=== PATIENT | male | born 1975 | race Caucasian/White ===

== ENCOUNTER → 2017-08-02 | Outpatient (CLI) | payer BC ==
[~2017-08-02] MED LIST: ASPIRIN 81M81 MG/TA2 PO; CIPRO 500MG TA500 MG PO; ERYTHROMYCIN5 MG/G1 OP; LEVAQUIN 750MG750 M1 PO; NO HOME MEDICATIONS; NORCO 325 MG-51 TAB PO; PRINIVIL10 MG PO; ZOFRAN 4MG T4 MG/TAB PO; [UNRECOGNIZED DRUG - REMARK]
== END ==
LOC: COL.RAD 07:41
DX: M79.604 Pain in right leg (principal); M79.605 Pain in left leg; I70.8 Atherosclerosis of other arteries
CPT/HCPCS: Q9967

== ENCOUNTER 2020-02-08 02:52 | Observation (INO) | payer BC ==
[2020-02-08] VITALS (9 sets, daily range): BP systolic 109–135; BP diastolic 66–88; PULSE 75–104; TEMP 97–99
[~2020-02-08] VITALS: Ht 182.9 cm; Wt 98.9 kg
[~2020-02-08 02:52] MED LIST changes: +HYZAAR 25 MG-101 TAB PO
[2020-02-08 04:11] LABS: BASO % 0.2 % (0.0-2.0); EOS % 0.1 % (0-4.0); GRAN # 14.4 (1.4-6.5); GRAN % 88.4 % (42.2-75.2); HEMATOCRIT 44.2 % (42.0-52.0); HEMOGLOBIN 15.2 g/dl (13.5-18.0); LYMPH # 1.3 (1.2-3.4); LYMPH % 7.7 % (20.0-51.0); MEAN CELL VOLUME 89 fl (80.0-100.0); MEAN CORPUSCULAR HEMOGLOBIN 31 pg (27.0-31.0); MEAN CORPUSCULAR HGB CONC 34 g/dl (33.0-37.0); MEAN PLATELET VOLUME 9.4 fl (7.4-10.4); MONO # 0.5 (0.1-0.6); MONO % 3.2 % (1.7-9.3); PLATELET COUNT 332 K/mm3 (130-400); RED BLOOD COUNT 4.99 M/mm3 (4.20-5.60); REDCELL DISTRIBUTION WIDTH-CV 12.9 % (11.5-14.5)
[2020-02-08 04:22] LABS: BILIRUBIN,TOTAL 0.4 mg/dL (0.0-1.0); CALCIUM 9.1 mg/dL (8.4-10.2); CREATININE, serum 0.81 (0.66-1.25); POTASSIUM 3.9 mmol/L (3.4-5.0); TOTAL PROTEIN 7.6 gm/dL (6.4-8.2)
[2020-02-08] MEDS ORDERED: MULTIPLE VITAMI1 CAP PO (06:11)
[2020-02-08 06:19] LABS: COLLECTION METHOD CLEAN CATCH
[2020-02-08 06:51] LABS: MUCOUS Present /lpf; PH 5 (5-8); SQUAMOUS EPITHELIAL None Seen /hpf; URINE APPEARANCE Clear; URINE BACTERIA None Seen /hpf; URINE BILIRUBIN Negative (NEGATIVE); URINE BLOOD Negative (NEGATIVE); URINE COLOR Yellow; URINE GLUCOSE Negative (NEGATIVE); URINE KETONE Negative (NEGATIVE); URINE LEUKOCYTE ESTERASE Negative (NEGATIVE); URINE NITRATE Negative (NEGATIVE); URINE PROTEIN(semi-quant) Negative (NEGATIVE); URINE RBC 0-2 /hpf; URINE UROBILINOGEN Negative (NEGATIVE)
--- NOTE | 2020-02-08 11:56 | NUR ---
Plan is to return home with his [facility] in [place]. Patient reports that his will transport him home. Patient denies the use of HH services, and does not require any DME;s. PCP is Jayson Richardson and patient obtains RX from [facility] without issues. Patient denies any additonal concerns. Nothing Follows.
--- NOTE | 2020-02-08 13:00 | NUR ---
Patient is going down to OR for Cholecysectomy at this time
--- NOTE | 2020-02-08 16:45 | NUR ---
Patient continues to do well, taking PO fluid well, VS stable, reports pain is tolerable, denies other needs
--- NOTE | 2020-02-08 18:14 | NUR ---
continues to do well post-op , vital signs stable, weaned off O2 and sats are WNL >90%, pain controlled, small amount of oozing from one of his Lap sites, up voiding urine, tolerating PO intake without N/V/Pain
[2020-02-08] MEDS ORDERED: NORCO 325 MG-51 TAB PO (19:00)
--- NOTE | 2020-02-08 19:30 | NUR ---
DR. EVANS GAVE PT OPTION TO GO HOME. PT DECIDED HE DID WANT TO GO HOME. [facility]d [facility] INTACT.
--- NOTE | 2020-02-08 19:40 | NUR ---
DISCHARGE INSTRUCTIONS GIVEN WITH HARD COPY TO PT. PT DENIED PAIN AT TIME OF DISCHARGE. SCRIPT FOR NORCO GIVEN TO PT. PHARMACY WAS CLOSED SO PT GIVEN 4 TAB TAKE-HOME PACK OF NORCO. PT DRESSED AND ESCORTED TO [facility] WHERE HIS PICKED HIM UP. PT HAD ALL HIS BELONGINGS WITH HIM.
== END 2020-02-08 19:40 | disposition home or self-care (01) ==
LOC: COL.ER 02:52 → MEDICAL 05:48
PROVIDERS: Emergency Medicine; ADMIT Surgery
DX: K80.12 Calculus of gallbladder with acute and chronic cholecystitis without obstruction (principal); I10 Essential (primary) hypertension; F17.220 Nicotine dependence, chewing tobacco, uncomplicated
CPT/HCPCS: G0378; J0690; J0696; J1100; J1885; J2270; J2405; J2704; J7030; J7120; Q9967